=== PATIENT | male | born 2000 | race Caucasian/White ===

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

== ENCOUNTER 2022-07-25 17:24 | Emergency (ER) | payer OTHER ==
[~2022-07-25] VITALS: Ht 182.9 cm; Wt 71.7 kg
[2022-07-25] MEDS ORDERED: PROAIR RESPICL90 MCG (19:09)
[2022-07-25] MEDS ORDERED: CLARITIN10 M1 (19:10)
[2022-07-25] MEDS ORDERED: METAXALONE800 MG PO (21:05)
== END 2022-07-25 22:31 | disposition home or self-care (01) ==
LOC: ER 17:24 → EMR PED 17:29 → ER 17:29 → EMR PED 22:31
DX: S13.4XXA Sprain of ligaments of cervical spine, initial encounter (principal); V80.010A Animal-rider injured by fall from or being thrown from horse in noncollision accident, initial encounter; Y93.I9 Activity, other involving external motion; Y92.89 Other specified places as the place of occurrence of the external cause; S03.40XA Sprain of jaw, unspecified side, initial encounter